=== PATIENT | male | born 1980 | race Caucasian/White ===

== ENCOUNTER 2016-07-03 14:27 | Emergency (ER) | payer OTHER ==
[2016-07-03 16:28] VITALS: TEMP 98
--- NOTE | 2016-07-03 16:30 | XR ---
EXAMINATION TYPE: XR foot complete LT DATE OF EXAM: 07/03/2016 4:23 PM CLINICAL HISTORY: pain TECHNIQUE: Frontal, lateral and oblique images of the left foot are obtained. COMPARISON: None. FINDINGS: Minimally displaced fracture noted to involve the shaft of the proximal phalanx left fifth toe. Mild soft tissue swelling seen. No additional fractures identified. The joint spaces appear wit hin normal limits. IMPRESSION: Minimally displaced fracture noted to involve the shaft of the proximal phalanx left fifth toe. ICD 10 closed FRACTURE, INITIAL EVALUATION
--- NOTE | 2016-07-03 16:31 | ED ---
General Adult HPI - General Chief complaint: Extremity Injury, Lower Stated complaint: Foot Pain Time Seen by Provider: 07/03/16 15:57 Source: patient, RN notes reviewed Mode of arrival: ambulatory Limitations: no limitations - History of Present Illness Initial comments: This is a 35-year-old male who presents with left foot pain since last night. Patient states he kicked a wall. Patient reports some bruising and swelling to the lateral aspect of the left foot. Patient has been able to ambulate but this is painful. Patient denies any left ankle pain. Patient denies any numbness/tingling or weakness. Patient denies any recent fever, chills, shortness breath, chest pain, abdominal pain, nausea/vomiting/diarrhea, back pain, hematuria, headache, or visual changes, or any other complaints. - Related Data Previous Rx's Medication Instructions Recorded HYDROcodone/APAP 5-325MG [[place] 1 tab PO Q6HR #12 tab 07/03/16 5-325] Allergies Allergy/AdvReac Type Severity Reaction Status Date / Time No Known Allergies Allergy Verified 07/03/16 16:36 Review of Systems ROS Statement: Those systems with pertinent positive or pertinent negative responses have been documented in the HPI. ROS Other: All systems not noted in ROS Statement are negative. Past Medical History Past Medical History: No Reported History History of Any Multi-Drug Resistant Organisms: None Reported Past Surgical History: No Surgical Hx Reported Past Psychological History: No Psychological Hx Reported Smoking Status: Current every day smoker Past Alcohol Use History: None Reported Past Drug Use History: None Reported General Exam - General Exam Comments Initial Comments: General: The patient is awake and alert, in no distress, and does not appear acutely ill. Neck: The neck is supple, there is no tenderness or JVD. Cardiovascular: There is a regular rate and rhythm. No murmur, rub or gallop is appreciated. Respiratory: Lungs are clear to auscultation, respirations are non-labored, breath sounds are equal. No wheezes, stridor, rales, or rhonchi. Musculoskeletal: There is tenderness to palpation over the lateral aspect left foot especially to the fifth digit of the left foot. There is bruising and mild swelling to this area as well. For range of motion, strength 5/5 and Sensation intact. Dorsalis pedis pulses 2+ bilaterally. Capillary refill is normal at less than 2 seconds. Neurological: A&O x 3. CN II-XII intact, There are no obvious motor or sensory deficits. Coordination appears grossly intact. Speech is normal. Skin: Mild ecchymosis to the anterior portion of the left foot and along the lateral aspect of left foot. Skin is warm and dry and no rashes or lesions are noted. Psychiatric: Normal mood and affect. Limitations: no limitations Course Vital Signs 07/03/16 15:40 Temperature 98.0 F Pulse Rate 90 Respiratory 20 Rate Blood Pressure 144/87 O2 Sat by Pulse 95 Oximetry Medical Decision Making - Medical Decision Making This is a 35-year-old male presents with left foot pain after kicking a wall yesterday. On physical exam There is tenderness to palpation over the lateral aspect left foot especially to the fifth digit of the left foot. There is bruising and mild swelling to this area as well. For range of motion, strength 5/5 and Sensation intact. Dorsalis pedis pulses 2+ bilaterally. Capillary refill is normal at less than 2 seconds. An x-ray of the left foot was done and reviewed showing: Minimally displaced fracture noted to involve the shaft of the proximal phalanx of the fifth toe. For a Dr. Valladares. Patient's fifth digit of the left foot was mainor taped. Neurovascular was rechecked and is intact. I discussed rest, ice, elevate and use a postop shoe or a hard soled shoe for ambulating. Patient was offered a prescription for crutches but he refused stating he is able to walk. I discussed the patient will receive a short prescription for [place] for breakthrough pain if Tylenol and /or Motrin does not work. I discussed follow-up with orthopedics. I discussed return parameters.Discussed that patient should follow up with PCP in one to 2 days or return to the [facility] for any worsening symptoms or for any further concerns. Patient was receptive to this plan and patient will be discharged home. Disposition Clinical Impression: Fracture of toe of left foot Disposition: HOME SELF-CARE Condition: Good Instructions: Toe Fracture (ED) Additional Instructions: Please rest, ice, elevate and use mainor tape to the fourth and fifth toes of the left foot. Please use [id number] Tylenol and/or Aleve as needed for any pain. Please use [place] for any breakthrough pain. Follow up with orthopedics. Please follow-up with family doctor in the next 2 days of symptoms have not improved. Please return to emergency room if the symptoms increase or worsen or for any other concerns. Prescriptions: HYDROcodone/APAP 5-325MG [[place] 5-325] 1 tab PO Q6HR #12 tab Referrals: Orion Jessica MD [Primary Care Provider] - 1-2 days Bassem Reyes MD [STAFF PHYSICIAN] - 1-2 days Time of Disposition: 16:33
[2016-07-03 17:02] VITALS: BP 139/86; PULSE 86; RESP 18
== END 2016-07-03 16:40 | disposition home or self-care (01) ==
LOC: EC 14:27
DX: S92.512A Displaced fracture of proximal phalanx of left lesser toe(s), initial encounter for closed fracture (principal); W22.01XA Walked into wall, initial encounter; F17.200 Nicotine dependence, unspecified, uncomplicated
CPT/HCPCS: 99283

== ENCOUNTER 2017-06-22 06:38 | Emergency (ER) | payer OTHER ==
[2017-06-22 06:45] VITALS: BP 150/81; PULSE 98; RESP 20; TEMP 97
--- NOTE | 2017-06-22 07:11 | XR ---
EXAM: XR Chest, 2 Views CLINICAL HISTORY: Reason: Pain TECHNIQUE: Frontal and lateral views of the chest. COMPARISON: No relevant prior studies available. FINDINGS: Lungs: Mild increased opacity in region of right middle lobe partially obscuring right cardiac margin suggesting partial atelectasis or mild infiltrate. Lungs are otherwise clear. Pleural space: No evidence of pneumothorax or pleural effusion. Heart: Heart size within normal limits. Mediastinum: Mediastinal structures are unremarkable. Bones/joints: Imaged bony thorax is unremarkable. IMPRESSION: Mild increased opacity in region of right middle lobe which may reflect partial atelectasis or mild infiltrate. Possibility of pneumonia must be considered and clinical correlation is recommended.
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
[2017-06-22] MEDS ORDERED: IBUPROFEN 800 MG TAB PO STA (08:24)
== END 2017-06-22 08:48 | disposition home or self-care (01) ==
LOC: EC 06:38
DX: M94.0 Chondrocostal junction syndrome [Tietze] (principal); J18.9 Pneumonia, unspecified organism; F17.200 Nicotine dependence, unspecified, uncomplicated
CPT/HCPCS: 71046; 99284